=== PATIENT | female | born 1950 | race Caucasian/White ===

== ENCOUNTER 2020-02-23 00:56 | Outpatient (CLI) | payer MEDICARE, SELFPAY ==
[2020-02-23 19:16] LABS: SARS-CoV-2 RNA PCR Negative
== END 2020-02-23 00:57 | disposition home or self-care (01) ==
LOC: ANHCOVIDDT 00:58
PROVIDERS: PCP Internal Medicine Cardiovascular Disease; Visit Provider Internal Medicine Gastroenterology
DX: Z01.818 Encounter for other preprocedural examination (principal); Z11.59 Encounter for screening for other viral diseases
CPT/HCPCS: 87635; C9803; U0003

== ENCOUNTER 2020-02-25 00:23 | Day surgery (SDC) | payer MEDICARE, SELFPAY ==
[2020-02-17 14:17] VITALS: BMI 21.4
--- NOTE | 2020-02-25 07:01 | WPDANESEPPF ---
Anes - Initial Pre Proc Eval Procedure: Operation Date: 02/25/20 07:30 Proposed Procedures p Screening Colonoscopy - Magdaleno Lemus MD Date/Time: 02/25/20 07:01 Surgeon: Magdaleno Lemus MD Pre Op Diagnosis: Family Hx Colon Ca Patient Data Age: 69 Gender: F Height: 5 ft 3 in Weight: 55 kg Allergies Allergy/AdvReac Type Severity Reaction Status Date / Time No Known Allergies Allergy Verified 02/25/20 06:49 Home Medications Medication Instructions Recorded Confirmed Type acyclovir 400 mg PO TID PRN 02/17/20 02/17/20 History alprazolam 0.5 mg PO TID PRN 02/17/20 02/17/20 History methocarbamol 500 mg PO TID 02/17/20 02/17/20 History omeprazole 40 mg PO DAILY 02/17/20 02/17/20 History Patient hx anesthesia problems: none Family hx anesthesia problems: none [facility] Past Medical History Medical History (Updated 02/25/20 @ 07:01 by Cem Florian MD) Anxiety GERD (gastroesophageal reflux disease) Anes - Eval Final PreProcedure Day of Procedure 02/25/20 07:01 Patient weight: normal Heart: regular rate and rhythm Lungs: clear to auscultation Airway: Mallampati scale class II Neurological: alert and oriented Last oral intake: >/= 8 hours ASA classification: II Emergent: no Anesthesia type and monitoring: general GIVS and standard monitoring Informed Consent: The patient's anesthetic plan and its attendant risks and benefits were discussed with the patient/family/POA. Questions were solicited and answers provided to the satisfaction of the patient/family/POA.
[2020-02-25] MEDS: LACTATED RINGERS 1,000 ML 150 ML IV CONT (07:03)
--- NOTE | 2020-02-25 07:07 | P.HP_ITS ---
History of Present Illness History of Present Illness Consent: Risks, benefits, and alternatives have been discussed and questions answered. Patient agrees to proceed with procedure. Chief complaint: Family Hx Colon Ca Narrative: Maureen Phillips is a 69 year old W female Referred for screening colonoscopy secondary to a personal history of polyps and a family history of colon cancel in a paternal aunt and uncle. Patient is asymptomatic. She states she has had several colonoscopies in the past last one 5 years ago reportedly was normal. [facility] Past Medical History Medical History (Updated 02/25/20 @ 07:10 by Magdaleno Lemus MD) Anxiety Chronic neck pain with history of cervical spinal surgery GERD (gastroesophageal reflux disease) Surgical screw in right hand Surgical History Surgical History (Updated 02/25/20 @ 07:10 by Magdaleno Lemus MD) History of section S/P tonsillectomy and adenoidectomy Meds Home Medications and Allergies Home Medications Medication Instructions Recorded Confirmed Type acyclovir 400 mg PO TID PRN 02/17/20 02/17/20 History alprazolam 0.5 mg PO TID PRN 02/17/20 02/17/20 History methocarbamol 500 mg PO TID 02/17/20 02/17/20 History omeprazole 40 mg PO DAILY 02/17/20 02/17/20 History Allergies Allergy/AdvReac Type Severity Reaction Status Date / Time No Known Allergies Allergy Verified 02/25/20 06:49 Exam Const: Orientation/consciousness: patient oriented x3 Resp: Auscultation: clear to auscultation bilaterally Cardio: Rate: regular rate Rhythm: regular rhythm Heart sounds: no murmurs GI: GI Palp: Yes Soft to palpation, No Tenderness to palpation present (GI), Yes No hepatosplenomegaly present and No Palpable mass present Auscultation: normal bowel sounds Neuro: General: patient oriented x3 and no focal motor deficits Extrem: General: no pedal edema Assessment and Plan Additional Plan screening colonoscopy in high risk patient
[2020-02-25 07:10] VITALS: BP 168/78; PULSE 62; RESP 18; TEMP 36.5; O2SAT 100
[2020-02-25 07:52] VITALS: BP 97/49; PULSE 57; RESP 15; O2SAT 98
[2020-02-25 08:02] VITALS: BP 99/52; PULSE 56; RESP 14; O2SAT 100
[2020-02-25 08:12] VITALS: BP 121/57; PULSE 50; RESP 19; O2SAT 100
== END 2020-02-25 08:29 | disposition home or self-care (01) ==
PROVIDERS: Visit Provider Internal Medicine Gastroenterology
PROC: 0DJD8ZZ Inspection of Lower Intestinal Tract, Via Natural or Artificial Opening Endoscopic (ICD-10-PCS; CPT 45378; principal; 2020-02-25 07:30)
DX: Z12.11 Encounter for screening for malignant neoplasm of colon (principal); Z86.010 Personal history of colon polyps; Z80.0 Family history of malignant neoplasm of digestive organs; K21.9 Gastro-esophageal reflux disease without esophagitis; F41.9 Anxiety disorder, unspecified
CPT/HCPCS: G0105; J2704; J7120